=== PATIENT | male | born 2000 | race Caucasian/White ===

== ENCOUNTER 2019-06-07 03:55 | Observation (INO) ==
[2019-06-07] MEDS ORDERED: KETOROLAC 30 MG/ML VIAL IV STA (04:15)
[2019-06-07] MEDS ORDERED: SODIUM CHLORIDE 0.9% 1000ML 1,000 ML IV SCH (04:15)
[2019-06-07] MEDS ORDERED: ONDANSETRON INJ 2 MG/ML 2 ML VIAL IV STA (04:15)
[2019-06-07 04:27] LABS: Basophils # (auto) 0.02 K/uL (0-0.2); Basophils % (auto) 0.2 %; Eosinophils # (auto) 0.12 K/uL (0-0.5); Eosinophils % (auto) 1.1 %; Hematocrit (blood only) 43.6 % (42-52); Hemoglobin 15.3 g/dL (14.0-18.0); Immature Granulocytes # (auto) 0.02 K/uL (0.00-0.02); Immature Granulocytes % (auto) 0.2 %; Lymphocytes # (auto) 1.29 K/uL (1.2-3.4); Lymphocytes % (auto) 11.5 %; Mean Corpuscular Hemoglobin 30.6 pg (25-34); Mean Corpuscular Hgb Conc 35.1 g/dL (32-36); Mean Corpuscular Volume 87.2 fL (80-100); Mean Platelet Volume 10.3 fL (7.4-10.4); Monocytes # (auto) 0.62 K/uL (0.11-0.59); Monocytes % (auto) 5.5 %; Neutrophils # (auto) 9.19 K/uL (1.4-6.5); Neutrophils % (auto) 81.5 %; Platelet Count 218 K/uL (130-400); RDW Coefficient of Variation 13.1 % (11.5-14.5); RDW Standard Deviation 41.6 fL (36.4-46.3); White Blood Count 11.26 K/uL (4.8-10.8)
[2019-06-07 04:32] LABS: Appearance Urine Clear (Clear); Bilirubin Urine Negative (Negative); Blood Urine Negative (Negative); Color Urine Yellow; Glucose Urine UA Negative (Negative); Ketones Urine Negative (Negative); Leukocyte Esterase Urine Negative (Negative); Nitrite Urine Negative (Negative); Protein Urine Negative (Negative); Specific Gravity Urine 1.005 (1.000-1.030); Urobilinogen Urine Negative (Negative)
[2019-06-07 04:45] LABS: Alanine Aminotransferase 17 U/L (12-78); Albumin Level 3.8 gm/dl (3.4-5.0); Aspartate Aminotransferase 10 U/L (15-37); BUN Creatinine Ratio 6.1 (10-20); Blood Urea Nitrogen 6 mg/dl (7-18); Carbon Dioxide 26 mmol/L (21-32); Chloride 105 mmol/L (98-107); Est GFR (African American) 134.7; Est GFR (Non-African American) 116.2; Glucose 101 mg/dl (70-99); Lipase 40 U/L (73-393); Potassium 3.5 mmol/L (3.5-5.1); Sodium 137 mmol/L (136-145)
[2019-06-07 04:48] LABS: Albumin Globulin Ratio 1.1 (0.9-2); Alkaline Phosphatase 98 U/L (45-117); Bilirubin,Total 1.1 mg/dl (0.2-1); Globulin 3.4 gm/dl (2.5-4.0); Total Protein 7.2 gm/dl (6.4-8.2)
[2019-06-07] MEDS ORDERED: MoRPHine SULFATE 4 MG/ML 1 ML CARP\\VIAL IV STA (05:13)
[2019-06-07] MEDS ORDERED: CIPROFLOXACIN 400 MG/200 ML BAG IV STA (05:13)
--- NOTE | 2019-06-07 05:55 | Emergency Department Note ---
History of Present Illness General Chief complaint: Abdominal Pain Stated complaint: ABD PAIN History of Present Illness Maximum Pain Intensity: 3 This is a 19-year-old male presenting to the emergency department for evaluation of right-sided abdominal pain. The patient symptoms began acutely 2 to 3 hours prior to arrival. He has not had nausea or vomiting. No difficulty using the bathroom. He rates his discomfort a 3/10, and describes it as dull, but worsening. He does not have a history of chronic medical disease. No chest pain, chest tightness, shortness of breath. No history of abdominal surgery. Last meal was approximately 6 PM yesterday. He has been drinking small amounts of fluids up to arriving in the ER. No recent travel history. He has not taken anything [id number] for pain control. Home Medications Home Medications Medication Instructions Recorded Confirmed Type No Known Home Medications 06/07/19 06/07/19 History hydrocodone-acetaminophen [[place]] 1 - 2 tab PO .every 4-6 hours PRN 06/07/19 Rx #12 tab Allergies Allergy/AdvReac Type Severity Reaction Status Date / Time amoxicillin AdvReac Unknown HAPPENED Verified 06/07/19 04:17 A BABY Past Med/Surg History Medical History No significant past medical history Surgical History History of orthopedic surgery Family History Other No significant family history Social History Preferred Language: Angolan Communication Ability: Effective Quantitative Research Analyst Required: No Beliefs That Will Affect Care: None Current Living Situation: Significant Other Other Information That Helps Us Care for You: No Feels Safe at Home: Yes Safety Concerns: Feels Safe At This Time Smoking Status: Current every day smoker Tobacco Type: smokeless tobacco ; Cigarettes Per Day: < 20 a day ; Do You Dip or Chew Tobacco: Yes (2-3 cans a week) ; Second Hand Exposure: No ; Tobacco Cessation Education Requested by Patient: No Hx Alcohol Use: No Hx Substance Use: No Review of Systems A total of 10 systems reviewed and were otherwise negative Physical Exam Vital Signs Vital Signs - 24 hr 06/07/19 03:57 06/07/19 05:19 06/07/19 07:00 Temperature 36.4 C L Temperature Source Oral Pulse Rate 97 H Pulse Rate [Apical] Pulse Rate [Finger] 86 105 H Pulse Rhythm [Apical] Pulse Rhythm [Finger] Pulse Strength [Finger] Respiratory Rate 18 18 18 Respiratory Effort / Characteristics Non-Labored Respiratory Depth Normal Respiratory Pattern Regular Blood Pressure 149/90 H Blood Pressure [Left Arm] 111/70 118/62 Blood Pressure Mean 109 Blood Pressure Mean [Left Arm] 83 80 Blood Pressure Position [Left Arm] Pulse Oximetry 99 100 100 Oxygen Delivery Method Room Air Room Air Oxygen Flow Rate Sepsis Recent Fever Within 48 Hours No Sepsis Action Taken by Nursing No Action Required 06/07/19 09:01 06/07/19 10:27 Temperature 36.7 C 36.9 C Temperature Source Oral Temporal Artery Scan Pulse Rate Pulse Rate [Apical] 71 Pulse Rate [Finger] 86 Pulse Rhythm [Apical] Regular Pulse Rhythm [Finger] Regular Pulse Strength [Finger] Normal Respiratory Rate 20 20 Respiratory Effort / Characteristics Non-Labored Spontaneous Non-Labored Spontaneous Respiratory Depth Normal Normal Respiratory Pattern Regular Regular Blood Pressure Blood Pressure [Left Arm] 116/79 120/65 Blood Pressure Mean Blood Pressure Mean [Left Arm] 91 83 Blood Pressure Position [Left Arm] Sitting Semi-fowlers Pulse Oximetry 100 100 Oxygen Delivery Method Room Air Oxymask Oxygen Flow Rate 10 Sepsis Recent Fever Within 48 Hours Sepsis Action Taken by Nursing VITALS: Vitals are noted on the nurse's note and reviewed by myself. Vital signs stable. GENERAL: Well-developed, well-nourished, white male, who is in no acute distress and resting comfortably. Patient is cooperative with the examination. HEAD: Normocephalic atraumatic. EARS: External ear normal. External auditory canals clear, tympanic membranes pearly snow without erythema or effusion bilaterally. EYES: Pupils equal round and reactive to light and accommodation. Conjunctivae without injection, sclerae without icterus. Extraocular movements intact. NOSE: Patent, turbinates without inflammation or discharge. MOUTH: Mucous membranes moist. Tonsils are not enlarged. Pharynx without erythema, blood, or exudate. Uvula midline. Airway patent. NECK: Supple without nuchal rigidity. No lymphadenopathy. No thyromegaly. Cervical spine is nontender. HEART: Regular rate and rhythm without murmurs gallops or rubs. LUNGS: Clear to auscultation bilaterally without wheezes, rales or rhonchi. No retractions or accessory muscle use. ABDOMEN: Positive normal bowel sounds x 4. Soft with mild right-sided abdominal tenderness. No distinct point tenderness. Tenderness is appreciated in both the right upper and right lower quadrant. No left-sided tenderness. No CVA tenderness. MUSCULOSKELETAL: No muscle atrophy, erythema, or edema noted. Full range of motion in all extremities. NEURO: Patient was alert and oriented to person place and time. CN II through XII grossly intact. SKIN: The skin was without rashes, erythema, edema, or bruising. Capillary refill less than 2 seconds. Course Administered Medications Discontinued Medications Bupivacaine HCl/Epinephrine Bitart (Bupivacaine 0.25%-Epi 1:[id number]) 30 ml INJ ONE ONE Stop: 06/07/19 10:05 Last Admin: 06/07/19 11:01 Dose: Not Given Documented by: [id number] Bupivacaine HCl/Epinephrine Bitart (Bupivacaine 0.25%-Epi 1:[id number]) Confirm Administered Dose 30 ml .ROUTE .STK-MED ONE Stop: 06/07/19 09:28 Last Admin: 06/07/19 11:01 Dose: 20 ml Documented by: [id number] Sodium Chloride (Nss 1000ml) 1,000 mls @ 999 mls/hr IV .[id number] CARLINE Stop: 06/07/19 05:15 Last Infusion: 06/07/19 05:24 Dose: 0 mls/hr Documented by: [id number] Admin: 06/07/19 04:23 Dose: 999 mls/hr Documented by: [id number] Ciprofloxacin (Cipro) 400 mg in 200 mls @ 200 mls/hr IV NOW [facility] Stop: 06/07/19 06:12 Last Infusion: 06/07/19 06:23 Dose: 0 mls/hr Documented by: [id number] Admin: 06/07/19 05:21 Dose: 200 mls/hr Documented by: [id number] Lactated Ringer's (Lr) 1,000 mls @ 80 mls/hr IV .[id number] CARLINE Stop: 07/07/19 11:29 Last Infusion: 06/07/19 14:17 Dose: 0 mls/hr Documented by: [id number] Admin: 06/07/19 11:45 Dose: 80 mls/hr Documented by: [id number] Ketorolac Tromethamine (Toradol) 30 mg IV NOW STA Stop: 06/07/19 04:16 Last Admin: 06/07/19 04:24 Dose: 30 mg Documented by: [id number] Morphine Sulfate (Morphine Sulfate) 4 mg IV NOW STA Stop: 06/07/19 05:14 Last Admin: 06/07/19 05:20 Dose: 4 mg Documented by: [id number] Ondansetron HCl (Zofran) 4 mg IV NOW STA Stop: 06/07/19 04:16 Last Admin: 06/07/19 04:24 Dose: 4 mg Documented by: [id number] Medical Decision Making Differential Diagnosis Differential diagnosis: Etiologies such as biliary colic, cholecystitis, hepatitis, pancreatitis, cardiac disease, pancreatitis, gastritis, peptic ulcer disease, appendicitis, cystitis, diverticulitis, mesenteric ischemia, inflammatory bowel disease, ileus, bowel obstruction, testicular/adnexal torsion, aortic pathology, bree ngles, as well as others were considered Laboratory Data Result diagrams: 06/07/19 04:13 06/07/19 04:13 Lab Results 06/07/19 06/07/19 06/07/19 Range/Units 04:13 04:13 04:16 WBC 11.26 H (4.8-10.8) K/uL RBC 5.00 (4.7-6.1) M/uL Hgb 15.3 (14.0-18.0) g/dL Hct 43.6 (42-52) % MCV 87.2 (80-100) fL MCH 30.6 (25-34) pg MCHC 35.1 (32-36) g/dL RDW Std Deviation 41.6 (36.4-46.3) fL RDW Coeff of Joyce 13.1 (11.5-14.5) % Plt Count 218 (130-400) K/uL MPV 10.3 (7.4-10.4) fL Immature Gran % (Auto) 0.2 % Neut % (Auto) 81.5 % Lymph % (Auto) 11.5 % [place] % (Auto) 5.5 % Eos % (Auto) 1.1 % Baso % (Auto) 0.2 % Immature Gran # (Auto) 0.02 (0.00-0.02) K/uL Neut # (Auto) 9.19 H (1.4-6.5) K/uL Lymph # (Auto) 1.29 (1.2-3.4) K/uL [place] # (Auto) 0.62 H (0.11-0.59) K/uL Eos # (Auto) 0.12 (0-0.5) K/uL Baso # (Auto) 0.02 (0-0.2) K/uL Sodium 137 (136-145) mmol/L Potassium 3.5 (3.5-5.1) mmol/L Chloride 105 (98-107) mmol/L Carbon Dioxide 26 (21-32) mmol/L Anion Gap 6.0 (3-11) BUN 6 L (7-18) mg/dl Creatinine 0.94 (0.6-1.4) mg/dl Est Cr Clr Drug Dosing Not Reportable Est GFR ( Amer) 134.7 Est GFR (Non-Af Amer) 116.2 BUN/Creatinine Ratio 6.1 L (10-20) Glucose 101 H (70-99) mg/dl Calcium 9.0 (8.5-10.1) mg/dl Total Bilirubin 1.1 H (0.2-1) mg/dl AST 10 L (15-37) U/L ALT 17 (12-78) U/L Alkaline Phosphatase 98 (45-117) U/L Total Protein 7.2 (6.4-8.2) gm/dl Albumin 3.8 (3.4-5.0) gm/dl Globulin 3.4 (2.5-4.0) gm/dl Albumin/Globulin Ratio 1.1 (0.9-2) Lipase 40 L (73-393) U/L Urine Color Yellow Urine Appearance Clear (Clear) Urine pH 7.0 (4.5-7.5) Ur Specific [place] 1.005 (1.000-1.030) Urine Protein Negative (Negative) Urine Glucose (UA) Negative (Negative) Urine Ketones Negative (Negative) Urine Blood Negative (Negative) Urine Nitrite Negative (Negative) Urine Bilirubin Negative (Negative) Urine Urobilinogen Negative (Negative) Ur Leukocyte Esterase Negative (Negative) Imaging Data Radiologist's Impression: Preliminary Findings Only See Final Report For Complete Findings CT ABDOMEN & PELVIS Without Contrast: Prominent retrocecal appendix measuring up to 12 mm with slight adjacent stranding. Findings are concerning for acute appendicitis. No abscess, free air/perforation or bowel obstruction MDM Narrative Physical exam and history were performed. Nursing notes, EMR, and Medication List were personally reviewed. Patient appears to have right-sided abdominal pain for the past few hours. On examination he does not appear toxic but does have some reproducible right-sided tenderness. IV access was established and labs were obtained. The patient was hydrated with normal saline and given IV Toradol for comfort. He was sent to CT scan for imaging. The patient's blood work is as above and was reviewed. He does have a slightly elevated white blood cell count of 11.26. He does not have a significant anemia or gross electrolyte imbalance. Lipase and transaminases are not diagnostic. Urine is without evidence of infection or blood. CT scan was reviewed by myself and radiology, and is consistent with acute appendicitis. I did update the patient regarding his findings. The case was discussed with the on-call surgeon, Dr. Franz, who will evaluate the patient here in the department for further care and management. The patient was placed n.p.o. and started on IV Cipro as he does have a penicillin allergy. He was given additional pain medication. Please see Dr. Franz's dictation for further patient course, plan, disposition. The chart was completed utilizing [employer] Speech Voice Recognition Software. Grammatical errors, random word insertions, pronoun errors, and incomplete sentences are an occasional consequence of this system due to software limitations, ambient noise, and hardware issues. Any formal questions or concerns about the content, text, or information contained within the body of this dictation should be directly addressed to the provider for clarification. . Impression & Plan Acute appendicitis, Right sided abdominal pain Discharge Plan Visit Data *Final* Discharge Date/Time: 06/07/19 08:30 Chief Complaint: Abdominal Pain Stated Complaint: ABD PAIN ED Provider: Hawa Valente ED Midlevel Provider: Caleb Escobedo Discharge Problem: Acute appendicitis, Right sided abdominal pain Patient Disposition: Still a Patient Discharge Instructions Interventions: ED Discharge Assessment Last Done: 06/07/19 08:30 Discharge Problem: Acute appendicitis Qualifiers: Acute appendicitis type: unspecified acute appendicitis type Qualified Code(s): K35.80 - Unspecified acute appendicitis
--- NOTE | 2019-06-07 07:12 | History & Physical Report ---
Date of Service June 07, 2019 Assessment & Plan (1) Acute appendicitis: Patient with acute appendicitis. We discussed his options. Recommend laparoscopic possible open appendectomy. Discussed the risks which include bleeding, infection, injury to another organ such as bowel or ureter, DVT, PE, NC, CVA etc. Following our discussion I answered all of his questions. We will proceed TRENT with laparoscopic possible open appendectomy. Patient agreeable to the plan. Acute appendicitis type: unspecified acute appendicitis type Qualified Code(s): K35.80 - Unspecified acute appendicitis History of Present Illness Primary Care Provider: NO PCP Patient began having generalized abdominal pain which progressed to the right lower quadrant. Began last night around 9 PM. Presented to the ER where work- up shows leukocytosis and acute appendicitis by CAT scan. Allergies Allergy/AdvReac Type Severity Reaction Status Date / Time amoxicillin AdvReac Unknown HAPPENED Verified 06/07/19 04:17 A BABY Home Medications Home Medications Medication Instructions Recorded Confirmed Type No Known Home Medications 06/07/19 06/07/19 History Past Med/Surg History Medical History (Updated 06/07/19 @ 05:55 by Caleb Escobedo PA-C) No significant past medical history Surgical History (Updated 06/07/19 @ 05:51 by Caleb Escobedo PA-C) History of orthopedic surgery Social History Preferred Language: Azerbaijani Feels Safe at Home: Yes Smoking Status: Current every day smoker Review of Systems All systems reviewed & are unremarkable except as noted in HPI & below Physical Exam Constitutional: WD/WN, vitals as above no acute distress and not ill appearing Eyes: PERRL, conjunctivae normal, anicteric sclerae EOM intact bilaterally ENMT: external ear and nose normal, oropharynx normal Ears: no hearing impairment Neck: trachea midline, no thyromegaly Respiratory: normal respiratory effort; no respiratory distress and does not use accessory muscles Cardiovascular: Rate/Rhythm: regular rate and regular rhythm Gastrointestinal (Abdomen): Soft with positive right lower quadrant tenderness at McBurney's point. Positive guarding positive Rovsing sign Skin: no rashes, warm and dry Psychiatric: Orientation: alert, oriented x 3 and cooperative Results & Data Vital Signs (Past 12 Hours) Vital Signs Temp Pulse Pulse Resp BP BP Pulse Ox 06/07/19 05:19 86 18 111/70 100 06/07/19 03:57 36.4 C L 97 H 18 149/90 H 99
--- NOTE | 2019-06-07 07:27 | CT Scan Report ---
ABDOMEN AND PELVIS CT WITHOUT CONTRAST CT DOSE: 947.77 mGy.cm HISTORY: Right side abd/flank pain TECHNIQUE: Multiaxial CT images of the abdomen and pelvis were performed without contrast. A dose lo wering technique was utilized adhering to the principles of ALARA. COMPARISON STUDY: Abdomen and pelvis CT 01/21/2019. FINDINGS: Suboptimal evaluation for bowel pathology due to the lack of intravenous and oral contrast. However, there is a thick-walled appendix within the right lower quadrant on image 327 which is dila carlos alberto up to 12 mm. Mild periappendiceal fat stranding. Therefore, these findings are consistent with ac jasbir appendicitis. No perforation or abscess at this time. Bladder wall thickening is likely due to un derdistention. No evidence for bowel obstruction. The lung bases are clear. No pneumoperitoneum. No p neumatosis. No fractures within the visualized osseous structures. The unenhanced liver, gallbladder, pancreas, spleen, adrenal glands, and kidneys are unremarkable. No hydronephrosis. No retroperitonea l lymphadenopathy. IMPRESSION: Acute appendicitis. Electronically signed by: Moris Morales M.D. 06/07/2019 7:26 AM
[2019-06-07] MEDS ORDERED: MIDAZOLAM HCL 1 MG/ML 2ML VIAL ONE (08:48)
[2019-06-07] MEDS ORDERED: fentaNYL citrate 100 MCG/2 ML VIAL ONE (08:48)
[2019-06-07] MEDS ORDERED: BUPIVACAINE/EPINEPHRINE 0.25% 1:200,000 30 ML VIAL ONE (09:27)
[2019-06-07] MEDS ORDERED: ONDANSETRON INJ 2 MG/ML 2 ML VIAL IV PRN ×2 (09:29→11:30)
[2019-06-07] MEDS ORDERED: PROMETHAZINE HCL 12.5 MG in SODIUM CHLORIDE 0.9% 50 ML IV PRN (09:29)
[2019-06-07] MEDS ORDERED: FLUMAZENIL 0.1 MG/1 ML 10 ML VIAL IV PRN (09:29)
[2019-06-07] MEDS ORDERED: ATROPINE SULFATE 0.1 MG/ML 10ML SYR IV PRN (09:29)
[2019-06-07] MEDS ORDERED: fentaNYL citrate 100 MCG/2 ML VIAL IV PRN (09:29)
[2019-06-07] MEDS ORDERED: NALOXONE HCL 0.4 MG/1 ML VIAL/CARP IV PRN (09:29)
[2019-06-07] MEDS ORDERED: ePHEDrine sulfate 50 MG/ML AMP IV PRN (09:29)
--- NOTE | 2019-06-07 09:29 | Anesthesiology Consultation ---
Date of Service June 07, 2019 Assessment & Plan Chart Review Chart Review: Acceptable Risk for Surgery and Patient NOT seen in Pre Admission Testing Consults Requested none ASA ASA2E Proposed Anesthesia Anesthesia Type: General Risk / Benefits Reviewed With: PT / POA / Parent / Guardian, Accepts Plan and Informed Consent Obtained History Surgery Operation Date: 06/07/19 08:15 Proposed Procedures p Laparoscopic Appendectomy - Kai Franz, DO Height/Weight Height: 5 ft 8 in Weight: 92.2 kg Allergies Allergy/AdvReac Type Severity Reaction Status Date / Time amoxicillin AdvReac Unknown HAPPENED Verified 06/07/19 04:17 A BABY Medications Home Medications Medication Instructions Recorded Confirmed Last Taken No Known Home Medications 06/07/19 06/07/19 Unknown hydrocodone-acetaminophen [[place]] 1 - 2 tab PO .every 4-6 hours PRN 06/07/19 Unknown #12 tab NPO Date Last Intake of Fluids: 06/07/19 Time Last Intake of Fluids: 03:30 Last Intake of Fluids Comment: "small amount of water" Date Last Intake of Solids: 06/06/19 Time Last Intake of Solids: 18:00 Last Intake of Solids Comment: "dinner time" Past Medical History Medical History No significant past medical history Exercise / Class Metabolic Activity II 4-5 Yardwork/Stairs/Walk up hill Past Family History Family History Other No significant family history Past Surgical History Surgical History History of orthopedic surgery Past Anesthesia History No Hx of Anesthesia Complications and No Family Hx of Anesthesia Complications History of PONV No Hx of PONV and No Hx of Motion Sickness Social History Smoking Status: Current every day smoker tobacco type: smokeless tobacco Smoking cigarettes per day: < 20 a day Do You Dip or Chew Tobacco: Yes (2-3 cans a week) Hx Alcohol Use: No Alcohol Intake Frequency Comment: denies Hx Substance Use: No substance use type: does not use Physical Exam Vital Signs Last Vital Signs Temp 36.7 C 06/07/19 09:01 Pulse 86 06/07/19 09:01 Resp 20 06/07/19 09:01 BP 116/79 06/07/19 09:01 Pulse Ox 100 06/07/19 09:01 Constitutional + obese ENMT Mouth: + dentition abnormality Thyromental Distance: > or= 3.5 Finger Breadths Mallampati Class: II Neck normal visual inspection, trachea midline and + facial hair; neck extension not limited Respiratory normal respiratory effort Auscultation: lungs clear to auscultation bilaterally Cardiovascular Rate/Rhythm: regular rate and regular rhythm Heart Sounds: no murmur Vessels: no carotid bruit Musculoskeletal Spine: normal cervical ROM Extremities: extremities normal to inspection Neurologic moves all extremities Motor/Sensory: no sensory deficit Psychiatric Orientation: alert and oriented x 3 Testing Laboratory Results 06/07/19 04:13 06/07/19 04:13 Urine Color Yellow 06/07/19 04:16 Urine Appearance Clear (Clear) 06/07/19 04:16 Urine pH 7.0 (4.5-7.5) 06/07/19 04:16 Ur Specific [place] 1.005 (1.000-1.030) 06/07/19 04:16 Urine Protein Negative (Negative) 06/07/19 04:16 Urine Glucose (UA) Negative (Negative) 06/07/19 04:16 Urine Ketones Negative (Negative) 06/07/19 04:16 Urine Nitrite Negative (Negative) 06/07/19 04:16 Ur Leukocyte Esterase Negative (Negative) 06/07/19 04:16
[2019-06-07] MEDS ORDERED: DEXAMETHASONE SOD INJ 4 MG/ML VIAL ONE (10:00)
[2019-06-07] MEDS ORDERED: ONDANSETRON INJ 2 MG/ML 2 ML VIAL ONE (10:00)
[2019-06-07] MEDS ORDERED: KETOROLAC 30 MG/ML VIAL ONE (10:00)
[2019-06-07] MEDS ORDERED: LIDOCAINE HCL 2% 2 ML VIAL/AMP(20MG/ML) INFIL ONE (10:00)
[2019-06-07] MEDS ORDERED: ROCURONIUM BROMIDE 10 MG/ML 5 ML VIAL ONE (10:00)
[2019-06-07] MEDS ORDERED: PROPOFOL IV EMULSION 10 MG/ML 20 ML VIAL IV ONE (10:00)
[2019-06-07] MEDS ORDERED: BUPIVACAINE/EPINEPHRINE 0.25% 1:200,000 30 ML VIAL INJ ONE (10:04)
--- NOTE | 2019-06-07 10:18 | Operative Report ---
PG Post Operative Report Pre & Post Diagnosis Operation Date: 06/07/19 08:15 Pre-Op Diagnosis: Acute Appendicitis Post-Op Diagnosis: Acute Appendicitis I identified the patient and participated in the time-out.: Yes Procedure Operation Date: 06/07/19 08:15 Actual Procedures p Laparoscopic Appendectomy(Not Applicable) - Kai Franz DO Surgeon Kai Franz DO Machinist Job Setter main [place] Estimated Blood Loss 5 Findings Consistent with Post-Op Diagnosis Specimens appendix Description of Procedure After informed consent was obtained the patient was taken to the operating room and placed in supine position. After successful intubation a Medina catheter was placed and the left arm was tucked. A Medina catheter was inserted sterilely. I began by making a periumbilical incision with an 11 blade scalpel and carried this down through the soft tissue using electrocautery. The anterior rectus fascia was opened using electrocautery and 2 #0 Vicryl stay sutures were placed. The peritoneum was elevated using hemostats and incised under direct vision using a Metzenbaum scissor. A finger sweep was performed. A 12 mm Almanzar trocar was placed and the abdomen was insufflated to 18 mmHg. A laparoscope was inserted and the abdomen was examined in 360. A suprapubic 5 mm port and a left lower quadrant 12 mm port were placed under direct vision. The patient was air planed to the left as well as placed in a slight Trendelenburg position. We began by looking in the right lower quadrant. We were able to readily identify the appendix and it was grossly inflamed. It had not perforated. There is a small amount of purulent fluid in the right lower quadrant and the pelvis. We immediately irrigated and suctioned this out. I was able to use primarily blunt dissection to pull the appendix away from the right lower quadrant sidewall. I was then able to use a MARLEN brown cartridge stapler to transect the mesentery of the appendix. Next I divided the appendix at it's base using a second MARLEN brown 60 mm stapler.. It was then placed into an Endo Catch bag and removed from the camera port site. We thoroughly irrigated the right lower quadrant as well as the pelvis. There was adequate hemostasis. I ran the small bowel backwards from the terminal ileum for about 6 feet all of which was normal. All the peritoneal surfaces were normal. Small/ large bowel, liver, stomach etc. all appeared grossly normal. We did a final irrigation and then removed all the trochars and desufflated the abdomen. The fascia of the camera port as well as the left lower quadrant were closed using 0 Vicryl in [id number] fashion. Wounds were all irrigated and closed using 4-0 Monocryl. Marcaine was injected around them for postoperative analgesia and skin glue used as a dressing. The patient was awakened extubated and transferred to recovery in stable condition. My physician's engineering assistant was present through the entire case. She assisted with prepping the patient and helped with exposure for port placement, helped run the camera and helped with fascial/wound closure at the end of the procedure as well as dressing placement. I attest to the content of the Intraoperative Record and any orders documented therein. Any exceptions are noted below. I attest to the content of the Intraoperative Record and any orders documented therein. Any exceptions are noted below.
--- NOTE | 2019-06-07 11:06 | Anesthesiology Progress Note ---
Date of Service June 07, 2019 Anesthesia Post Procedure Vital Signs Vital Signs: Temp Pulse Pulse Pulse Resp BP BP 06/07/19 10:55 69 20 120/69 06/07/19 10:45 67 22 119/71 06/07/19 10:35 67 22 122/69 06/07/19 10:27 36.9 C 71 20 120/65 06/07/19 09:01 36.7 C 86 20 116/79 06/07/19 07:00 105 H 18 118/62 06/07/19 05:19 86 18 111/70 06/07/19 03:57 36.4 C L 97 H 18 149/90 H Pulse Ox 06/07/19 10:55 99 06/07/19 10:45 100 06/07/19 10:35 100 06/07/19 10:27 100 06/07/19 09:01 100 06/07/19 07:00 100 06/07/19 05:19 100 06/07/19 03:57 99 Pain Intensity Right Abdomen: Pain Intensity: 10 Transfer of Care Handoff Completed per policy Notes Mental Status: alert / awake / arousable Patient Amnestic to Procedure: Yes Nausea / Vomiting: adequately controlled Pain: adequately controlled Airway Patency, RR, SpO2: stable & adequate BP & HR: stable & adequate Hydration State: stable & adequate Anesthetic Complications: no major complications apparent
[2019-06-07] MEDS ORDERED: HYDROCODONE/ACETAMOPHEN 5/325MG TAB PO PRN ×2 (11:30)
[2019-06-07] MEDS ORDERED: MoRPHine SULFATE 4 MG/ML 1 ML CARP\\VIAL IV PRN (11:30)
[2019-06-07] MEDS ORDERED: MoRPHine SULFATE 2 MG/ML CARP IV PRN (11:30)
[2019-06-07] MEDS ORDERED: ACETAMINOPHEN 1,000 MG/100 ML VIAL IV PRN (11:30)
[2019-06-07] MEDS ORDERED: ACETAMINOPHEN 325 MG TAB PO PRN (11:30)
[2019-06-07] MEDS ORDERED: LACTATED RINGER'S 1,000 ML IV SCH (11:30)
--- NOTE | 2019-06-08 15:08 | Pharmacy Report ---
ED Pharmacist Progress Note - ED Pharmacist Progress Note Date of Service:: June 08, 2019 Notes:: Received a call from patient was discharged from hospital. Prescription was sent to [facility], patient is unable to fill his script there because they will not fill CII prescriptions without insurance. He was requesting it be sent to [facility] in [place]. I did attempt to reach Madonna Elizondo PA-C but was unable to reach her. Called the answering service for general surgery and relayed information. Called patient back and let him know what was happening, did provide him with the answering service telephone number and said to have him call the number again in 30 minutes if he had not heard from anyone.
--- NOTE | 2019-06-11 10:40 | Discharge Summary ---
Date of Service June 11, 2019 Admission HPI Per Admitting Provider Patient began having generalized abdominal pain which progressed to the right lower quadrant. Began last night around 9 PM. Presented to the ER where work- up shows leukocytosis and acute appendicitis by CAT scan. Principal Diagnosis Acute appendicitis Discharge Exam Gastrointestinal (Abdomen) Inspection/Auscultation: + abdominal surgical incision (clean, dry); abdomen not distended Percussion/Palpation: abdomen soft Discharge Data Allergies Allergy/AdvReac Type Severity Reaction Status Date / Time amoxicillin AdvReac Unknown HAPPENED Verified 06/07/19 04:17 A BABY Consultations 06/07/19 05:15 Consult General Surgery Stat Procedures Performed Operation Date: 06/07/19 08:15 Actual Procedures p Laparoscopic Appendectomy(Not Applicable) - Kai Franz DO Ordered Studies 06/07/19 04:15 CT abd pelvis wo con Urgent Hospital Course (1) S/P appendectomy: 19 y/o male presented to the ED with abdominal pain that began overnight. White cell count was [address] was consistent with appendicitis. He was taken to the OR that morning for laparoscopic appendectomy and transferred back to the surgical floor. He was able to tolerate advancing diet and oral analgesics during the day and was stable for discharge later that afternoon. Total Time Total Time Spent Total Time Spent (In Minutes): 10 Discharge Plan Discharge Items Patient Disposition: Home - Self-Care Reason For Visit: POST OP Discharge Diagnosis: laparoscopic appendectomy Activity: Per Instructions section Lifting: No more than 10 pounds Bathing Comment: may shower tomorrow-06/08/19 Exercise/Sports: Wait until after follow-up appointment Driving/Machine Use: do not resume driving while taking narcotics for pain Non-emergency contact: Surgeon Call non-emergency contact if: you have any medication questions, your symptoms worsen, your pain is not controlled, your pain is worsening, your pain is concerning for you, you have a fever, your temperature is above 101.5, your wound has increased redness, your wound has increased drainage and your wound pain has increased Follow-up/Referrals: Kai Franz DO [Surgeon] - (Please call to schedule follow up in 1-2 weeks. ) PCP,NO [Primary Care Provider] - Diet: Regular Addtl Attending Provider Instructions: Pending Studies at Discharge: No Stand-Alone Forms: [facility] Medications and DC Order Prescriptions: New hydrocodone-acetaminophen [[place]] 5-325 mg tablet 1 - 2 tab PO .every 4-6 hours PRN (Reason: pain, for initial therapy. Max 8 per day) Qty: 12 RF: 0 No Action No Known Home Medications RF: 0 Discharge Orders: Discharge Order (Routine); Ordered 06/07/19 Ordered By: Madonna Elizondo Admission Data Admit Date/Time: 06/07/19 10:29 Attending Provider: Kai Franz Admit Provider: Kai Franz Primary Care Provider: PCP,NO Other Providers: Kai Franz Other Interventions: Discharge Summary Assessment (RN) Last Done: 06/07/19 14:02 DC Date/Time DO NOT enter until pt leaves facility: 06/07/19 14:38
== END 2019-06-07 14:38 | disposition home or self-care (01) ==
LOC: ED 03:55 → 3N 08:30 → ASU 08:30